=== PATIENT | male | born 1955 | race Caucasian/White ===

== ENCOUNTER 2018-08-12 14:48 | Observation (INO) | payer MEDICARE, OTHER ==
[~2018-08-12] VITALS: Ht 167.6 cm; Wt 91.2 kg
[2018-08-12 15:22] LABS: BASOPHILS # (AUTO) 0.03 x10^3/uL (0-0.1); BASOPHILS % (AUTO) 0 % (0-1); EOSINOPHILS # (AUTO) 0.07 x10^3/uL (0-0.4); EOSINOPHILS % (AUTO) 1 % (1-7); LYMPHOCYTES # (AUTO) 0.96 x10^3/uL (1-3.4); LYMPHOCYTES % (AUTO) 11 % (22-44); MD NO; MEAN CORPUSCULAR HEMOGLOBIN 31.4 pg (27.5-34.5); MEAN CORPUSCULAR HGB CONC 34.4 g/dL (33.2-36.2); MEAN CORPUSCULAR VOLUME 91.2 fL (81-97); MEAN PLATELET VOLUME 7.6 fL (7.4-10.4); MONOCYTES # (AUTO) 0.56 x10^3/uL (0.2-0.8); MONOCYTES % (AUTO) 6 % (2-9); NEUTROPHILS # (AUTO) 7.19 x10^3/uL (1.8-6.8); NEUTROPHILS % (AUTO) 82 % (42-75); PLATELET COUNT 191 x10^3/uL (130-400); RED BLOOD COUNT 5.73 x10^6/uL (4.38-5.82); RED CELL DISTRIBUTION WIDTH 14.4 % (9.4-14.8)
[2018-08-12 15:29] LABS: ALBUMIN 3.4 g/dL (3.4-5.0); ANION GAP 7 mmol/L (5-15); CHLORIDE 102 mmol/L (98-107); CREATININE 2.01 mg/dL (0.7-1.3)
[2018-08-12 15:36] LABS: BILIRUBIN, DIRECT 0.2 mg/dL (0.1-0.2)
[2018-08-12 15:37] LABS: ALBUMIN 3.4 g/dL (3.4-5.0)
[2018-08-12 15:38] LABS: BILIRUBIN,INDIRECT 0.8 mg/dL (0.0-2.0); TOTAL PROTEIN 7.1 g/dL (6.4-8.2)
[2018-08-12] MEDS ORDERED: FAMOTIDINE 20 MG TABLET ONE (15:38)
[2018-08-12 15:46] LABS: MICROSCOPIC NOT IND
[2018-08-12 15:49] LABS: CULTURE INDICATED? NO
[2018-08-12 15:52] LABS: TROPONIN I < 0.015 ng/mL (0.000-0.045)
[2018-08-12] MEDS ORDERED: FAMOTIDINE 20 MG TABLET PO ONE (16:00)
[2018-08-12] MEDS ORDERED: SODIUM CHLORIDE 0.9%, 500ML IVBOLUS ONE (16:00)
[2018-08-12] MEDS ORDERED: ROPI2TAB6 PO (16:50)
[2018-08-12] MEDS ORDERED: INSU100V3 SQ (16:50)
[2018-08-12] MEDS ORDERED: LISI-170 PO (16:50)
[2018-08-12] MEDS ORDERED: ASPI-614 PO (16:50)
[2018-08-12] MEDS ORDERED: LEVO175T5 PO (16:50)
[2018-08-12] MEDS ORDERED: ZOLPIDEM 5MG TABLET PO PRN (17:30)
[2018-08-12] MEDS ORDERED: ONDANSETRON ODT 4 MG PO PRN (17:30)
[2018-08-12] MEDS ORDERED: ONDANSETRON 2MG/ML, 2ML IVPush PRN (17:30)
[2018-08-12] MEDS ORDERED: POLYETHYLENE GLYCOL 17 GM PACKET PO PRN (17:30)
[2018-08-12] MEDS ORDERED: ACETAMINOPHEN 325 MG TABLET PO PRN (17:30)
[2018-08-12 17:57] VITALS: BP 145/87
[2018-08-12] MEDS: SODIUM CHLORIDE 0.9% 1,000 ML IV SCH (18:12)
[2018-08-12 19:30] VITALS: BP 119/76
[2018-08-12] MEDS: INSULIN LISPRO 100 UNITS/ML, PEN SQ-INSULIN SCH (21:00)
[2018-08-12] MEDS ORDERED: INSULIN LISPRO 100 UNITS/ML, PEN SQ-INSULIN ONE (21:00)
[2018-08-12] MEDS: ROPINIROLE 1MG TABLET PO SCH (21:04)
[2018-08-12 22:38] LABS: ANION GAP 9 mmol/L (5-15); CALCIUM 8.2 mg/dL (8.5-10.1); CHLORIDE 104 mmol/L (98-107); CREATININE 1.77 mg/dL (0.7-1.3)
[2018-08-12 22:40] VITALS: BP 95/61
[2018-08-12 23:00] VITALS: BP 111/69
[2018-08-12 23:09] VITALS: BP 110/70
[2018-08-12] MEDS ORDERED: INSULIN LISPRO 100 UNITS/ML, PEN SQ-INSULIN SCH (23:35)
[2018-08-13] MEDS ORDERED: SODIUM POLYSTYRENE SULFONATE ORAL SUSP PO ONE
[2018-08-13] MEDS ORDERED: INSULIN REGULAR 100 UNITS/ML, 3ML VIAL IVPush ONE (00:30)
[2018-08-13 00:55] VITALS: BP 105/67
[2018-08-13] MEDS: SODIUM CHLORIDE 0.9% 1,000 ML IV SCH ×2 (01:18→09:07)
[2018-08-13 05:50] LABS: ANION GAP 8 mmol/L (5-15); CALCIUM 8.3 mg/dL (8.5-10.1); CHLORIDE 108 mmol/L (98-107)
[2018-08-13 05:51] LABS: CREATININE 1.39 mg/dL (0.7-1.3)
[2018-08-13] MEDS ORDERED: LEVOTHYROXINE 175 MCG TABLET PO SCH (06:00)
[2018-08-13 06:52] VITALS: BP 126/75
[2018-08-13] MEDS ORDERED: ENOXAPARIN 40 MG/0.4 ML SQ SCH (09:00)
[2018-08-13] MEDS ORDERED: ENOXAPARIN 30 MG/0.3 ML SQ SCH (09:00)
[2018-08-13] MEDS: ROPINIROLE 1MG TABLET PO SCH (09:08)
[2018-08-13] MEDS: INSULIN LISPRO 100 UNITS/ML, PEN SQ-INSULIN SCH (09:08)
== END 2018-08-13 10:33 | disposition home or self-care (01) ==
LOC: ED 16:41 → INTOOBSV 16:42 → EDIP 16:42 → SUATTDRO 17:00 → ED 17:01 → 4EST 17:54 → DCLOUNGE 08-13 10:28
PROVIDERS: ADMIT Hospitalist; ATTEND Hospitalist
DX: I95.9 Hypotension, unspecified (principal); E87.5 Hyperkalemia; E87.1 Hypo-osmolality and hyponatremia; E11.65 Type 2 diabetes mellitus with hyperglycemia; Z79.4 Long term (current) use of insulin; Z79.82 Long term (current) use of aspirin
CPT/HCPCS: 36415; 71045; 80048; 80076; 81003; 82947; 82962; 83735; 84100; 84484; 85025; 93005; 96372; 99285; G0378; J1815; J7030; J7040; 82040

== ENCOUNTER 2020-09-10 09:12 | Emergency (ER) | payer MEDICARE ==
[~2020-09-10] VITALS: Ht 167.6 cm; Wt 94.6 kg
[~2020-09-10 09:12] MED LIST: ASPI-614 PO; INSU100V3 SQ; LEVO175T5 PO; LISI-170 PO; ROPI2TAB6 PO
--- NOTE | 2020-09-10 09:30 | NUR ---
Assumed care of patient. Sent here from optomitrist for HTN. C/O vision changes x months. Denies numbness and tingling, unilateral weakness, and dizziness. A&Ox4. IV started and labs drawn. EKG done. Placed on NIBP, pulse ox and monitoring manager. NAD. Will continue to monitor.
[2020-09-10 09:57] LABS: BASOPHILS % (AUTO) 1 % (0-1); EOSINOPHILS % (AUTO) 1 % (1-7); LYMPHOCYTES % (AUTO) 18 % (22-44); MEAN CORPUSCULAR HEMOGLOBIN 30.8 pg (27.5-34.5); MEAN CORPUSCULAR HGB CONC 33.7 g/dL (33.2-36.2); MEAN PLATELET VOLUME 7.7 fL (7.4-10.4); MONOCYTES % (AUTO) 9 % (2-9); NEUTROPHILS % (AUTO) 72 % (42-75); PLATELET COUNT 175 x10^3/uL (130-400); RED BLOOD COUNT 5.87 x10^6/uL (4.38-5.82); RED CELL DISTRIBUTION WIDTH 14.6 % (9.4-14.8)
[2020-09-10] MEDS ORDERED: MAALOX/HYOSCYAMINE/LIDOCAINE 45 ML BTL ONE (09:57)
[2020-09-10 09:59] LABS: MD NO
[2020-09-10] MEDS ORDERED: MAALOX/HYOSCYAMINE/LIDOCAINE 45 ML BTL PO ONE (10:00)
[2020-09-10 10:04] LABS: ALANINE AMINOTRANSFERASE 17 U/L (12-78); ALBUMIN 3.5 g/dL (3.4-5.0); ANION GAP 4 mmol/L (5-15); CALCIUM 8.8 mg/dL (8.5-10.1); CHLORIDE 104 mmol/L (98-107)
[2020-09-10 10:07] LABS: ALKALINE PHOSPHATASE 88 U/L (45-117); BILIRUBIN,TOTAL 1.2 mg/dL (0.2-1.0); CREATININE 1.23 mg/dL (0.7-1.3); TOTAL PROTEIN 7.1 g/dL (6.4-8.2)
--- NOTE | 2020-09-10 10:30 | NUR ---
Remains HTN. Remains asymptomatic. No needs.
[2020-09-10 10:32] LABS: TROPONIN I < 0.015 ng/mL (0.000-0.045)
[2020-09-10 10:37] LABS: MICROSCOPIC AUTO
--- NOTE | 2020-09-10 10:49 | NUR ---
BP improved. ADELINA Ibarra aware.
--- NOTE | 2020-09-10 11:45 | NUR ---
Patient/Caregiver given discharge instructions and they have confirmed that they understand the instructions. Patient ambulatory with steady gait.
--- NOTE | 2020-09-10 12:06 | NUR ---
At the DC desk patient became dizzy. RN assisted patient to the chair. BP = 174/110 HR 85. ADELINA Ibarra and MD Hollie aware. Patient taken back to room. Placed on NIBP, pulse ox, and case monitor.
[2020-09-10 13:06] VITALS: BP 177/93
--- NOTE | 2020-09-10 13:06 | NUR ---
Resting in [facility]. RR= 16. BP = 175/97 HR = 97.
--- NOTE | 2020-09-10 13:30 | NUR ---
Provided with meal tray. Patient states he is feeling better.
--- NOTE | 2020-09-10 14:11 | NUR ---
Denies dizziness. States he's feeling better.
--- NOTE | 2020-09-10 14:13 | NUR ---
Patient/Caregiver given discharge instructions and they have confirmed that they understand the instructions. Patient ambulatory with steady gait.
== END 2020-09-10 14:14 | disposition home or self-care (01) ==
LOC: ED 10:07
DX: I10 Essential (primary) hypertension (principal); H53.9 Unspecified visual disturbance; E11.65 Type 2 diabetes mellitus with hyperglycemia; E87.5 Hyperkalemia; R07.89 Other chest pain
CPT/HCPCS: 36415; 71045; 80053; 81001; 84484; 85025; 93005; 99285

== ENCOUNTER 2020-09-13 14:07 | Emergency (ER) | payer MEDICARE ==
[~2020-09-13] VITALS: Ht 167.6 cm; Wt 94.0 kg
[2020-09-13 15:27] LABS: ALBUMIN 3.6 g/dL (3.4-5.0); ANION GAP 7 mmol/L (5-15); BASOPHILS % (AUTO) 1 % (0-1); CALCIUM 9.1 mg/dL (8.5-10.1); CHLORIDE 100 mmol/L (98-107); CREATININE 1.42 mg/dL (0.7-1.3); EOSINOPHILS % (AUTO) 2 % (1-7); LYMPHOCYTES % (AUTO) 15 % (22-44); MEAN CORPUSCULAR HGB CONC 33.7 g/dL (33.2-36.2); MEAN PLATELET VOLUME 7.9 fL (7.4-10.4); MONOCYTES % (AUTO) 9 % (2-9); NEUTROPHILS % (AUTO) 72 % (42-75); PLATELET COUNT 221 x10^3/uL (130-400); RED CELL DISTRIBUTION WIDTH 14.7 % (9.4-14.8)
--- NOTE | 2020-09-13 15:38 | NUR ---
PT STATES STARTED FEELING DIZZY AT APPROXIMATELY 12 THIS AFTERNOON. CONCERNED BECAUSE BLOOD PRESSURE HIGH AND BLOOD GLUCOSE HAS BEEN LOW B/P -192/107
--- NOTE | 2020-09-13 15:50 | NUR ---
fsbs 110 Provider to bedside to review poc
[2020-09-13 16:00] LABS: MD SCAN
--- NOTE | 2020-09-13 16:17 | NUR ---
medicated per [facility] pre-medication 75, 197/102
[2020-09-13] MEDS ORDERED: LABETALOL 20 MG/4 ML ONE (16:59)
[2020-09-13] MEDS ORDERED: MAALOX/HYOSCYAMINE/LIDOCAINE 45 ML BTL ONE (16:59)
[2020-09-13] MEDS ORDERED: LABETALOL 5MG/ML, 20ML IVPush ONE (17:00)
[2020-09-13 17:15] VITALS: BP 180/99
[2020-09-13] MEDS ORDERED: MAALOX/HYOSCYAMINE/LIDOCAINE 45 ML BTL PO ONE (17:30)
== END 2020-09-13 18:14 | disposition home or self-care (01) ==
LOC: ED 16:50
DX: I10 Essential (primary) hypertension (principal); E11.9 Type 2 diabetes mellitus without complications
CPT/HCPCS: 36415; 71045; 80048; 82040; 82962; 85025; 93005; 99285

== ENCOUNTER 2021-03-28 20:18 | Emergency (ER) | payer MEDICARE ==
[~2021-03-28] VITALS: Ht 172.7 cm; Wt 90.9 kg
--- NOTE | 2021-03-28 20:43 | NUR ---
BIB EMS FROM WORK. PT STATES HE WAS ON HIS WAY TO GET A PACKAGE FROM WORK AND WHEN HE GOT THERE HE BLACKED OUT. DOES NOT RECALL ANYTHING EXCEPT BEING IN THE AMBULANCE. PER EMS PT HAD BS 25 GIVEN 175 ML D10 AND BS INCREASED TO 103 AND BECAME AOX4. BS NOTED TO BE 50 ON ARRIVAL. ABRASION NOTED TO TOP OF HEAD. ERP AT BEDSIDE FOR EVAL. NOTIFIED OF BS 50 AND BP 209/113. PT RESTING ON GURNEY. NADN. MONITORS APPLIED.
[2021-03-28] MEDS ORDERED: DEXTROSE 10% 500 ML IV ONE (21:00)
[2021-03-28] MEDS ORDERED: DEXTROSE 10% 500 ML IV SCH (21:00)
[2021-03-28 21:25] LABS: BASOPHILS % (AUTO) 1 % (0-1); EOSINOPHILS % (AUTO) 0 % (1-7); LYMPHOCYTES % (AUTO) 8 % (22-44); MEAN CORPUSCULAR HEMOGLOBIN 31.8 pg (27.5-34.5); MEAN CORPUSCULAR HGB CONC 34.4 g/dL (33.2-36.2); MEAN PLATELET VOLUME 7.8 fL (7.4-10.4); MONOCYTES % (AUTO) 7 % (2-9); NEUTROPHILS % (AUTO) 85 % (42-75); PLATELET COUNT 157 x10^3/uL (130-400); RED BLOOD COUNT 5.74 x10^6/uL (4.38-5.82); RED CELL DISTRIBUTION WIDTH 14.6 % (9.4-14.8)
[2021-03-28 21:27] LABS: MD NO
[2021-03-28 21:33] LABS: ANION GAP 2 mmol/L (5-15); CHLORIDE 102 mmol/L (98-107)
[2021-03-28] MEDS ORDERED: CALCIUM CARBONATE 500 MG TAB.CHEW ONE (21:44)
[2021-03-28] MEDS ORDERED: CALCIUM CARBONATE 500 MG TAB.CHEW PO PRN (22:00)
--- NOTE | 2021-03-28 22:11 | NUR ---
PT BP REMAINS ELEVATED. ERP DR. FORTUNE NOTIFIED.
--- NOTE | 2021-03-28 22:37 | NUR ---
PT RESTING ON GURNEY. NADN. BP REMAINS ELEVATED. ERP DR. FORTUNE AWARE.
[2021-03-28] MEDS ORDERED: LOSARTAN 25MG TABLET PO ONE (23:00)
[2021-03-28 23:28] VITALS: BP 177/97
== END 2021-03-29 00:48 | disposition home or self-care (01) ==
LOC: ED 20:52
DX: E10.649 Type 1 diabetes mellitus with hypoglycemia without coma (principal); I10 Essential (primary) hypertension
CPT/HCPCS: 36415; 80048; 82962; 85025; 93005; 96360

== ENCOUNTER 2021-06-18 21:43 | Emergency (ER) | payer MEDICARE ==
[~2021-06-18] VITALS: Ht 167.6 cm; Wt 87.7 kg
[2021-06-18] MEDS ORDERED: SODIUM CHLORIDE 0.9% 1,000ML IVBOLUS ONE (22:30)
[2021-06-18] MEDS ORDERED: ONDANSETRON 2MG/ML, 2ML IVPush ONE (22:30)
[2021-06-18 22:47] LABS: BASOPHILS % (AUTO) 1 % (0-1); EOSINOPHILS % (AUTO) 0 % (1-7); LYMPHOCYTES % (AUTO) 8 % (22-44); MEAN CORPUSCULAR HEMOGLOBIN 32.2 pg (27.5-34.5); MEAN CORPUSCULAR HGB CONC 34.8 g/dL (33.2-36.2); MEAN PLATELET VOLUME 7.8 fL (7.4-10.4); MONOCYTES % (AUTO) 5 % (2-9); NEUTROPHILS % (AUTO) 87 % (42-75); PLATELET COUNT 186 x10^3/uL (130-400); RED BLOOD COUNT 6.34 x10^6/uL (4.38-5.82); RED CELL DISTRIBUTION WIDTH 14.4 % (9.4-14.8)
[2021-06-18 22:56] LABS: ALANINE AMINOTRANSFERASE 41 U/L (12-78); ALBUMIN 3.5 g/dL (3.4-5.0); ANION GAP 14 mmol/L (5-15); CALCIUM 9.4 mg/dL (8.5-10.1); CHLORIDE 95 mmol/L (98-107)
[2021-06-18 22:59] LABS: ALKALINE PHOSPHATASE 117 U/L (45-117); BILIRUBIN,TOTAL 3.6 mg/dL (0.2-1.0); CREATININE 2.02 mg/dL (0.7-1.3); TOTAL PROTEIN 7.3 g/dL (6.4-8.2)
[2021-06-18 23:25] VITALS: BP 117/70
== END 2021-06-19 00:01 | disposition home or self-care (01) ==
LOC: ED 23:58
DX: A09 Infectious gastroenteritis and colitis, unspecified (principal); R11.2 Nausea with vomiting, unspecified; E10.22 Type 1 diabetes mellitus with diabetic chronic kidney disease; I12.9 Hypertensive chronic kidney disease with stage 1 through stage 4 chronic kidney disease, or unspecified chronic kidney disease; N18.9 Chronic kidney disease, unspecified; E10.65 Type 1 diabetes mellitus with hyperglycemia
CPT/HCPCS: 36415; 80053; 83690; 85025; 96360; 99283; J7030